=== PATIENT | male | born 1955 | race Caucasian/White ===

== ENCOUNTER → 2019-03-27 | Outpatient (CLI) | payer OTHER | LOC: RAD 11:28 | DX: M25.551 Pain in right hip (principal); M54.40 Lumbago with sciatica, unspecified side ==

== ENCOUNTER → 2019-04-03 | Outpatient (CLI) | payer OTHER | LOC: CAT 13:59 | DX: Z13.6 Encounter for screening for cardiovascular disorders (principal); E78.00 Pure hypercholesterolemia, unspecified; I25.10 Atherosclerotic heart disease of native coronary artery without angina pectoris ==